=== PATIENT | female | born 1995 | race Two or more races ===

== ENCOUNTER 2024-10-16 15:23 | Emergency (ER) | payer MEDICAID, OTHER ==
[~2024-10-16] VITALS: Ht 170.2 cm; Wt 95.0 kg
[2024-10-16 15:43] VITALS: BP 118/77; PULSE 93; RESP 17; TEMP 98.6; O2SAT 98
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
== END 2024-10-16 16:39 | disposition home or self-care (01) ==
LOC: ER 15:23
DX: S16.1XXA Strain of muscle, fascia and tendon at neck level, initial encounter (principal); S39.012A Strain of muscle, fascia and tendon of lower back, initial encounter; Z88.0 Allergy status to penicillin; V89.2XXA Person injured in unspecified motor-vehicle accident, traffic, initial encounter; Y93.89 Activity, other specified; Y92.89 Other specified places as the place of occurrence of the external cause; Y99.8 Other external cause status
CPT/HCPCS: 72040; 72100